=== PATIENT | female | born 1985 | race Caucasian/White ===

== ENCOUNTER 2018-05-13 05:57 | Inpatient (IN) | payer OTHER ==
[2018-05-13] MEDS: LACTATED RINGER'S 1,000 ML IV ×3 (06:51→23:31)
[2018-05-13 06:58] LABS: ADD MAN DIFF? NO
[2018-05-13] MEDS ORDERED: OXYTOCIN 30 UNITS/LR 500 ML BAG IV (07:00)
[2018-05-13] MEDS ORDERED: CEFAZOLIN 2 GM/50 ML (PMX) 50 ML IVPB (07:00)
[2018-05-13] MEDS ORDERED: METHYLERGONOVINE 0.2 MG INJ IM ×2 (07:00→11:00)
[2018-05-13] MEDS ORDERED: OXYTOCIN 30 UNITS/LR 500 ML IV ×2 (07:00→11:00)
[2018-05-13] MEDS ORDERED: EPHEDrine SULFATE 50 MG/5 ML SYG (07:00)
[2018-05-13] MEDS ORDERED: MISOPROSTOL 200 MCG TAB PR ×2 (07:00→11:00)
[2018-05-13] MEDS ORDERED: CARBOPROST 250 MCG INJ IM ×2 (07:00→11:00)
[2018-05-13 07:02] LABS: WHITE BLOOD COUNT 7.8 10^3/ul (4.8-10.8)
[2018-05-13 07:02] LABS: BASOPHILS % 0.4 % (0.0-2.0); EOSINOPHILS # 0.2 10^3/ul (0.0-0.5); EOSINOPHILS % 2.1 % (0.0-7.0); HEMOGLOBIN 11.9 g/dl (12.0-16.0); LYMPHOCYTES # 2.3 10^3/ul (0.8-2.9); LYMPHOCYTES % 28.9 % (15.0-51.0); MEAN CORPUSCULAR HEMOGLOBIN 31.2 pg (29.0-33.0); MEAN CORPUSCULAR VOLUME 91.6 fl (82.0-101.0); MEAN PLATELET VOLUME 10.7 fl (7.4-10.4); MONOCYTE # 0.8 10^3/ul (0.3-0.9); MONOCYTES % 10.3 % (0.0-11.0); NEUTROPHIL # 4.5 10^3/ul (1.6-7.5); NEUTROPHILS % 57.5 % (39.0-77.0); PLATELET COUNT 229 10^3/UL (140-415); RED BLOOD COUNT 3.82 10^6/ul (4.20-5.40)
[2018-05-13 07:05] LABS: INR 0.88; PT RATIO 0.9
[2018-05-13 08:03] LABS: HEPATITIS B SURFACE ANTIGEN NEGATIVE (NEGATIVE)
[2018-05-13 08:13] LABS: HIV 1&2 ANTIBODY NEGATIVE (NEGATIVE)
[2018-05-13] MEDS ORDERED: morphine SULFATE/PF (10 MG/10 ML) INJ (08:44)
[2018-05-13] MEDS ORDERED: PHENYLephrine (100 MCG/ML) 5ML SYG (08:54)
[2018-05-13] MEDS ORDERED: NALOXONE (0.4 MG/ML) INJ IV (09:30)
[2018-05-13] MEDS ORDERED: MEPERIDINE 25 MG INJ IV (09:30)
[2018-05-13] MEDS ORDERED: METOCLOPRAMIDE 10 MG INJ IV (09:30)
[2018-05-13] MEDS ORDERED: ONDANSETRON 4 MG INJ IV ×2 (09:30)
[2018-05-13] MEDS ORDERED: HYDROmorphONE 1 MG/5 ML IV SYRINGE IV ×3 (09:30)
[2018-05-13] MEDS ORDERED: FENTAnyl 50 MCG/ML VIAL IV ×2 (09:30)
[2018-05-13] MEDS ORDERED: DIPHENHYDRAMINE 50 MG INJ IV ×2 (09:30)
[2018-05-13] MEDS ORDERED: HYDROmorphONE 0.5 MG/0.5 ML SYG IV ×2 (09:30)
[2018-05-13] MEDS ORDERED: ALBUTEROL 0.083% (NEB) 2.5 MG/3 ML AMP HHN (09:30)
[2018-05-13] MEDS ORDERED: FENTAnyl 50 MCG/ML VIAL (09:39)
[2018-05-13] MEDS ORDERED: METHYLERGONOVINE 0.2 MG TAB PO (11:00)
[2018-05-13] MEDS: OXYTOCIN 30 UNITS/LR 500 ML IV ×3 (11:14→13:59)
[2018-05-13] MEDS: KETOROLAC 30 MG INJ IV ×2 (11:21→21:02)
[2018-05-13] MEDS: DEXTROSE 5%-LR 1,000 ML IV ×2 (14:00→16:34)
[2018-05-13] MEDS: IBUPROFEN 800 MG TAB PO ×2 (14:00→22:00)
[2018-05-13 15:09] LABS: RAPID PLASMA REAGIN NONREACTIVE (NR)
[2018-05-13] MEDS: LANOLIN 7 GM TUBE TOP (16:34)
[2018-05-13] MEDS: SENNA/DOCUSATE NA (8.6MG/50MG) TAB PO (21:00)
[2018-05-14 08:09] LABS: ADD MAN DIFF? NO
[2018-05-14 08:18] LABS: WHITE BLOOD COUNT 9.4 10^3/ul (4.8-10.8)
[2018-05-14 08:18] LABS: BASOPHILS % 0.2 % (0.0-2.0); EOSINOPHILS % 0.4 % (0.0-7.0); HEMATOCRIT 25.1 % (37.0-47.0); HEMOGLOBIN 8.5 g/dl (12.0-16.0); LYMPHOCYTES # 1.3 10^3/ul (0.8-2.9); LYMPHOCYTES % 13.9 % (15.0-51.0); MEAN CORPUSCULAR HEMOGLOBIN 31.5 pg (29.0-33.0); MEAN CORPUSCULAR HGB CONC 33.9 g/dl (32.0-37.0); MEAN PLATELET VOLUME 10.3 fl (7.4-10.4); MONOCYTE # 0.6 10^3/ul (0.3-0.9); MONOCYTES % 5.8 % (0.0-11.0); NEUTROPHIL # 7.4 10^3/ul (1.6-7.5); PLATELET COUNT 178 10^3/UL (140-415)
[2018-05-14] MEDS: SENNA/DOCUSATE NA (8.6MG/50MG) TAB PO ×2 (09:00→21:14)
[2018-05-14] MEDS: IBUPROFEN 800 MG TAB PO ×3 (09:08→22:00)
[2018-05-14] MEDS: DIPHTH/TET/ACEL PERTUSS (ADULT) 0.5 ML VIAL IM* (10:55)
[2018-05-14] MEDS: HYDROCODONE/APAP (5/325) TAB GTB ×2 (13:34→21:15)
[2018-05-14] MEDS: HYDROCODONE/APAP (5/325) TAB NGT (22:14)
[2018-05-15] MEDS: IBUPROFEN 800 MG TAB PO ×3 (06:09→21:54)
[2018-05-15] MEDS: HYDROCODONE/APAP (5/325) TAB GTB ×3 (06:09→21:54)
[2018-05-15] MEDS: SENNA/DOCUSATE NA (8.6MG/50MG) TAB PO ×2 (08:34→21:54)
[2018-05-16] MEDS: IBUPROFEN 800 MG TAB PO ×3 (06:27→22:22)
[2018-05-16] MEDS: HYDROCODONE/APAP (5/325) TAB GTB ×3 (06:28→22:22)
[2018-05-16] MEDS: DIPHTH/TET/ACEL PERTUSS (ADULT) 0.5 ML VIAL IM* (09:00)
[2018-05-16] MEDS: SENNA/DOCUSATE NA (8.6MG/50MG) TAB PO ×2 (09:51→22:12)
[2018-05-16] MEDS: MEASLES,MUMPS,RUBELLA VACCINE INJ SC* (09:52)
[2018-05-17] MEDS: IBUPROFEN 800 MG TAB PO ×2 (05:54→13:29)
[2018-05-17] MEDS: HYDROCODONE/APAP (5/325) TAB GTB ×2 (05:54→13:29)
[2018-05-17] MEDS: SENNA/DOCUSATE NA (8.6MG/50MG) TAB PO (08:32)
== END 2018-05-17 16:30 | disposition home or self-care (01) | DRG 785 ==
LOC: L-D 05:57 → PP1 13:07
PROVIDERS: Obstetrics & Gynecology
PROC: 10D00Z1 Extraction of Products of Conception, Low, Open Approach (ICD-10-PCS; principal; 2018-05-13 07:30)
PROC: 0UB70ZZ Excision of Bilateral Fallopian Tubes, Open Approach (ICD-10-PCS; 2018-05-13 07:30)
DX: O30.043 Twin pregnancy, dichorionic/diamniotic, third trimester (principal); O32.1XX2 Maternal care for breech presentation, fetus 2; O90.81 Anemia of the puerperium; D64.9 Anemia, unspecified; Z3A.39 39 weeks gestation of pregnancy; Z37.2 Twins, both liveborn; Z30.2 Encounter for sterilization
CPT/HCPCS: 85025; 85610; 85730; 86592; 86703; 86850; 86900; 86901; 87340; 88302; 88307; 90715; 99464